=== PATIENT | male | born 1965 | race Caucasian/White ===

== ENCOUNTER → 2021-10-06 | Outpatient (CLI) | payer OTHER ==
[2021-10-06 08:14] LABS: Basophils # (A) 0.1 k/uL (0-0.2); Basophils % (A) 1 %; Eosinophils # (A) 0.1 k/uL (0-0.7); Eosinophils % (A) 2 %; HCT 45.1 % (39.0-53.0); HGB 15.7 gm/dL (13.0-17.5); Lymphocytes % (A) 32 %; MCH 30.9 pg (25.0-35.0); MCHC 34.7 g/dL (31.0-37.0); MCV 88.9 fL (80.0-100.0); Mean Platelet Volume 7.2; Monocytes # (A) 0.6 k/uL (0-1.0); Monocytes % (A) 9 %; Neutrophils # (A) 3.4 k/uL (1.3-7.7); Neutrophils % (A) 54 %; Platelet Count 247 k/uL (150-450); RBC 5.08 m/uL (4.30-5.90); RDW 12.6 % (11.5-15.5); WBC 6.4 k/uL (3.8-10.6)
[2021-10-06 08:28] LABS: Potassium 4.1 mmol/L (3.5-5.1)
== END | disposition home or self-care (01) ==
LOC: LABPAT 07:51
PROVIDERS: ATTEND Orthopaedic Surgery Hand Surgery
DX: Z01.812 Encounter for preprocedural laboratory examination (principal); R22.32 Localized swelling, mass and lump, left upper limb
CPT/HCPCS: 36415; 80051; 85025; 93005

== ENCOUNTER 2021-10-14 09:18 | Day surgery (SDC) | payer OTHER ==
[2021-10-08 14:48] VITALS: BMI 27.6
--- NOTE | 2021-10-13 08:36 | P.HPOR ---
History of Present Illness H&P Date: 10/13/21 Chief Complaint: Left small finger dorsal soft tissue mass Subjective: This is a 56 year old male that presents today for initial evaluation regarding a left small finger dorsal soft tissue mass that has been present for 1.5 years. He has noticed the bump getting larger over the past 1.5 years. He says it is more of an annoyance and is not painful but wishes to have it removed. He denies any paresthesias or trauma. Physical Examination: LUE: AIN/PIN/Radial/Ulnar/Median motor intact. Radial/Ulnar/Median SILT. 2+/4 Radial/Ulnar pulses palpated. 1cm oval soft tissue mass present on dorsal aspect of right small finger. Mass does not transilluminate with light penetration. Full ROM of small finger at PIP joint and MCP joint. Imaging: X-Rays of the left small finger demonstrate no acute osseuss abnormality. Dorsal soft tissue mass presence seen on x-ray. Impression: 1.) Left small finger dorsal soft tissue mass Plan: Diagnosis and treatment options were discussed with the patient. He states he would like to have the soft tissue mass removed since it is uncomfortable and has not gone away for the past 1.5 years. Risks and benefits were discussed with patient including bleeding, damage to surrounding tissue, infection, need for further surgery and recurrence and he wished to proceed with surgical intervention. The patient was agreeable with this plan of action, he will obtain pre-op labs and ekg and will be schedule for surgery in the near future. -El Hopper DO Orthopedic Hand/Upper Extremity Surgeon Past Medical History Past Medical History: GERD/Reflux Additional Past Medical History / Comment(s): LIMITED ROM RIGHT SHOULDER. History of Any Multi-Drug Resistant Organisms: None Reported Past Surgical History: Orthopedic Surgery Additional Past Surgical History / Comment(s): suma shoulder arthroscopy Past Anesthesia/Blood Transfusion Reactions: No Reported Reaction Smoking Status: Never smoker - Past Family History Sister(s) Family Medical History: Cancer Father Family Medical History: Cancer, Deep Vein Thrombosis (DVT) Medications and Allergies Home Medications Medication Instructions Recorded Confirmed Type Multivitamins, Thera [Multivitamin] 1 tab PO DAILY 01/27/16 10/08/21 History Omeprazole 20 mg PO W/SUPPER 01/27/16 10/08/21 History Allergies Allergy/AdvReac Type Severity Reaction Status Date / Time No Known Allergies Allergy Verified 10/08/21 14:41 Physical Examination Osteopathic Statement: *. No significant issues noted on an osteopathic structural exam other than those noted in the History and Physical/Consult.
[~2021-10-14 09:18] MED LIST: LACTATED RINGERS 1,000 ML IV SCH; LIDOCAINE 1% (10MG/ML) FOR IV START INTRADERMA PRN; fentaNYL (PF) 50 MCG/ML 2 ML AMP IV PRN
[2021-10-14 09:47] VITALS: RESP 16; TEMP 97.3
[2021-10-14] MEDS ORDERED: ONDANSETRON 4 MG/2 ML VIAL ONE (09:55)
[2021-10-14] MEDS ORDERED: DEXAMETHASONE SOD PHOSPHATE 4 MG/ML 1 ML VIAL IVP ONE (09:58)
[2021-10-14] MEDS ORDERED: MIDAZOLAM 2 MG/2 ML VIAL ONE (11:38)
[2021-10-14] MEDS ORDERED: fentaNYL (PF) 50 MCG/ML 2 ML AMP ONE (11:38)
[2021-10-14] MEDS ORDERED: PROPOFOL 10 MG/ML 20 ML VIAL IV ONE (11:38)
[2021-10-14] MEDS ORDERED: LIDOCAINE 0.5% (PF) 5 MG/ML (50 ML SDV) SQ ONE (11:40)
[2021-10-14] MEDS ORDERED: LIDOCAINE 1% INJ 10MG/ML (20 ML MDV) SQ ONE (11:40)
[2021-10-14 12:43] VITALS: BP 130/80; PULSE 57
--- NOTE | 2021-10-14 19:37 | P.OP ---
Date of Procedure: 10/14/21 Preoperative Diagnosis: Left small finger soft tissue mass Postoperative Diagnosis: Left small finger soft tissue mass Procedure(s) Performed: Left small finger soft tissue mass excision, 2cm. Anesthesia: MAC Surgeon: El Hopper Snailer #1: Brando Duran Estimated Blood Loss (ml): 0 Pathology: other (Left small finger soft tissue mass) Condition: stable Disposition: PACU Description of Procedure: This is a 56 year old male who presents today for a excision of a right small finger soft tissue mass that failed conservative treatment. Risks and benefits of surgery were discussed with the patient including bleeding, damage to surrounding tissue, infection, need for further surgery as well as risks of anesthesia including pulmonary embolism and even and the patient wished to proceed with surgical intervention. The patient was seen in the pre-operative area by myself. Consent and H&P were completed and updated. The correct extremity was marked in the pre-operative area by myself and all other questions were answered. Operative Narrative: The patient was brought to the operating room by the department of anesthesia. They remained on the portable stretcher and a rolling hand table was brought to the side of the operative extremity. Pre-operative time out was performed indicating the correct patient, procedure and laterality. All in the room agreed. Pre-operative antibiotics were given prior to skin incision. The patient was then drifted off to sleep by the department of anesthesia. MAC anesthesia was utilized and a 50:50 mixture of 1% Lidocaine and 0.5% bupivacaine was injected into the subcutaneous tissues of the palmar skin, 10ccs total. A nonsterile tourniquet was then applied to the operative extremity and the right upper extremity was then prepped and draped in normal sterile fashion. The operative extremity was then exsanguinated with an esmarch bandage and the tourniquet was inflated to 250mmHg. A slightly curvilinear incision was made with a 15 blade scalpel directly overlying the dorsal mass at the level of the PIP joint. Skin hooks were then placed and subcutaneous dissection was performed which unveiled a white multi- lobulated mass tightly adhered to the dorsal aspect of the central extensor tendon. The radial and ulnar boarders of the mass were bluntly dissected then a 15 blade scalpel was used to sharply incise the mass of the extensor apparatus taking care to preserve the central slip and lateral bands. The mass was then excised in its entirety and sent for pathology and measured 2x1.5cm. The wound was then irrigated and skin closure was performed with 4-0 nylon in a horizontal mattress fashion. Sterile dressing consisting of a adaptic, 4x4s, and a kerlix wrap was applied. Tourniquet was then deflated and all digits had immediate perfusion. The patient was then woken by the department of anesthesia and transferred to PACU in stable condition. El Hopper D.O. Orthopedic Hand/Upper Extremity Surgeon
== END 2021-10-14 12:56 | disposition home or self-care (01) ==
LOC: OR 09:18
PROVIDERS: ATTEND Orthopaedic Surgery Hand Surgery
DX: R22.32 Localized swelling, mass and lump, left upper limb (principal); D21.12 Benign neoplasm of connective and other soft tissue of left upper limb, including shoulder; K21.9 Gastro-esophageal reflux disease without esophagitis; Z79.899 Other long term (current) drug therapy
CPT/HCPCS: 11422; J2250; J1100; J0690; J2405; J2001 ×2; J3010; J2704; 88305

== ENCOUNTER 2024-12-11 09:22 | Day surgery (SDC) | payer OTHER ==
[2024-12-11 10:52] VITALS: TEMP 97.6
[2024-12-11] MEDS: LACTATED RINGERS 1,000 ML IV SCH (10:58)
[2024-12-11] MEDS: ONDANSETRON 4 MG/2 ML VIAL IVP STA (10:58)
[2024-12-11] MEDS: IV FLUID CONTINUATION 1,000 ML IV ONE (10:59)
[2024-12-11] MEDS ORDERED: PROPOFOL 10 MG/ML 20 ML VIAL IV ONE (12:08)
[2024-12-11] MEDS ORDERED: LIDOCAINE 1% INJ 10MG/ML (20 ML MDV) ONE (12:08)
--- NOTE | 2024-12-11 12:17 | P.PCN ---
Date of Procedure: 12/11/24 Procedure(s) Performed: BRIEF HISTORY: Patient is a 59-year-old, pleasant, white man scheduled for an upper endoscopy as a part evaluation of lungs and history of GERD and Daniels's esophagus. PROCEDURE PERFORMED: Esophagogastroduodenoscopy with biopsy. PREOPERATIVE DIAGNOSIS: Longstanding history of GERD and Daniels's esophagus. IV sedation per anesthesia. PROCEDURE: After informed consent was obtained, the patient was brought into the endoscopy unit. IV sedation was administered by Anesthesia under continuous monitoring. Initially the Olympus GIF-140 video endoscope was inserted into the mouth. Esophagus intubated without any difficulty. It was gradually advanced into the stomach and duodenum and carefully examined. The bulb and the second part of the duodenum appeared normal. The scope at this time was withdrawn to the stomach, adequately insufflated with air, and upon careful examination, mucosa of the antrum, body, cardia and the fundus appeared normal. Gastric polyps noted in the gastric body of the stomach which were biopsied. The scope was then withdrawn into the esophagus. Small hiatal hernia noted. The GE junction was located at 40 cm from the incisors. There was a long segment of Daniels's esophagus extending from 30 to 40 cm from the incisors and multiple biopsies were done from this area. The rest of the esophagus appeared normal. There were no erosions or ulcerations seen and the patient tolerated the procedure well. IMPRESSION: 1. Daniels's esophagus extending from 30 to 40 cm from the incisors status post biopsies. 2. Small hiatal hernia 3. Multiple gastric polyps status post BX. RECOMMENDATIONS: The findings of this examination were discussed with the patient as well as his family. He was advised to follow with the biopsy results. If the biopsy reveals Daniels's esophagus with no evidence of dysplasia, he can have repeat upper endoscopy in 3 years. In the meantime he will continue with omeprazole 20 mg daily and follow antireflux measures..
[2024-12-11 12:33] VITALS: BP 127/78; PULSE 78; RESP 18
== END 2024-12-11 13:04 | disposition home or self-care (01) ==
LOC: ORWHC2ENDO 09:22
PROVIDERS: ATTEND Internal Medicine Gastroenterology
DX: K22.70 Barrett's esophagus without dysplasia (principal); K31.7 Polyp of stomach and duodenum; K21.9 Gastro-esophageal reflux disease without esophagitis; K44.9 Diaphragmatic hernia without obstruction or gangrene; Z79.899 Other long term (current) drug therapy
CPT/HCPCS: 43239; J2405; J2003; J2704; 88305